=== PATIENT | female | born 1990 ===

== ENCOUNTER 2018-07-12 11:21 | Emergency (ER) | payer MEDICAID, SELFPAY ==
--- NOTE | 2018-07-12 12:40 | OBHP ---
Datetime: 07/12/2018 12:35 IP Adm Impression: Term, intrauterine IP Admit Plan: Discharge home Admit Comment, IP Provider: at 37+weks camre with c/o irrg ctxs, no vb , lof+fm,. obx 1 x pmh gdma1 med pnv all nkda psh de soch de ve closed fs 54 a/p at [id number] dc home labor giv po hy f/u on jul 15 Pelvic Type - PN: Adequate Extremities - PN: Normal Abdomen - PN: Normal Back - PN: Normal Breast - PN: Normal Lungs - PN: Normal Heart - PN: Normal Thyroid - PN: Normal Neurologic - PN: Normal HEENT - PN: Normal General - PN: Normal FHR - Baseline A Provider: 130 Contraction Comments Provider: irrg IP Hx Assessment: The History has been Reviewed and is Current EGA AdmitDate IP: 37.4 Vital Signs Provider: Reviewed; Within Normal Limits IP Chief Complaint: Uterine contractions NICHD Variability Prov Fetus A: Moderate 6-25bpm NICHD Accel Fetus A IP Provider: [id number] FHR Category Provider Fetus A: Category I Dilatation, Provider: 0 Effacement, Provider: 0 Station, Provider: -3 Genitourinary Exam: Normal DTRs - PN: Normal
--- NOTE | 2018-07-12 12:46 | OBDCSUM ---
Datetime: 07/12/2018 12:38 Discharged to, Provider: Home Discharged to, Provider: Home Follow up at, Provider: [facility] Follow up at, Provider: jul 15 Disch Instr Activity: Normal activity Disch Instr Diet: Regular Discharge Time: 07/12/2018 12:42 Follow up in weeks, Provider: 07-15-18 Follow up in weeks, Provider: clinic Disch Referrals: None Discharge Comment, Provider: labor ind given po hy f/u Discharge Diagnosis Prov Other: 37wee nst false labor
[2018-07-12 22:29] VITALS: BP 105/62; PULSE 67
== END 2018-07-12 13:00 | disposition home or self-care (01) ==
LOC: C.EROB 11:21
DX: O47.1 False labor at or after 37 completed weeks of gestation (principal); Z3A.37 37 weeks gestation of pregnancy